=== PATIENT | male | born 1960 ===

== ENCOUNTER 2020-07-14 22:29 | Emergency (ER) | payer OTHER ==
[2020-07-14] MEDS ORDERED: ONDANSETRON 4 MG/2 ML VIAL ONE (23:16)
[2020-07-14] MEDS ORDERED: MORPHINE 4 MG/ML SYR ONE (23:16)
[2020-07-14 23:21] LABS: Absolute Lymphocytes (CBC) 1.8 K/uL (0.7-4.9); Basophils % 0.5 % (0-1.3); Hematocrit 44.8 % (39.6-49.0); Lymphocytes % 16.1 % (15.3-44.8); MPV 8.6 fL (7.6-11.3); RBC Red Blood Cell Count 5.01 M/uL (4.33-5.43)
[2020-07-14 23:26] LABS: Protime INR 1.04
[2020-07-14 23:45] LABS: ALT/SGPT 44 U/L (12-78); AST/SGOT 30 U/L (15-37); Albumin 4.3 g/dL (3.4-5.0); Alkaline Phosphatase 89 U/L (45-117); BUN Blood Urea Nitrogen 9 mg/dL (7-18); Bicarbonate 23 mmol/L (21-32); Bilirubin Direct 0.2 mg/dL (0-0.2); Bilirubin Total 0.5 mg/dL (0.2-1.0); Glucose Level 102 mg/dL (74-106); Lipase 234 U/L (73-393); Magnesium 2.1 mg/dL (1.8-2.4); NT PRO-BNP 100 pg/mL (<125); Potassium 3.6 mmol/L (3.5-5.1); Protein, Total 8.4 g/dL (6.4-8.2); Sodium Level 138 mmol/L (136-145); Troponin (Emerg Dept Use Only) < 0.02 ng/mL (0.0-0.045)
[2020-07-15] MEDS ORDERED: LABETALOL 20 MG/4ML SYRINGE IV ONE (01:35)
--- NOTE | 2020-07-15 01:39 | EDPHYS ---
Physician Documentation [facility] Name: João Hoffman Age: 59 yrs Sex: Male : 1960 Arrival Date: 07/14/2020 Time: 22:32 Bed 15 Private MD: TED Physician Pardeep Hoffman HPI: 07/14 22:55 This 59 yrs old Male presents to ER via Ambulatory with complaints of Abdominal Pain. cp 22:55 The patient presents with abdominal pain right upper lateral abdomen. The symptoms cp radiate to right back. Associated signs and symptoms: Pertinent positives: palpitations, Pertinent negatives: blood in stools, constipation, diarrhea, dysuria, fever, shortness of breath, testicular pain, vomiting. 22:55 Severity of pain: in the emergency department the pain is unchanged despite home cp interventions. 22:55 Patient reports recent release from alf and that he was given metoprolol instead of cp carvedilol for HTN and palpitations. Patient reports in the past metoprolol did not work to manage palpitations. Historical: - Allergies: 22:50 No Known Allergies; em - Home Meds: 22:50 carvedilol 25 mg oral tab [Active]; diazepam 5 mg Oral tab [Active]; em - PMHx: 22:50 Hypertension; Anxiety; em - PSHx: 22:50 neck; lower back; em - Immunization history:: Adult Immunizations not up to date. - Social history:: Smoking status: Patient reports the use of cigarette tobacco products, denies chronic smoking, but will smoke occasionally. ROS: 23:00 Constitutional: Negative for body aches, chills, fever, poor PO intake. cp 23:00 Eyes: Negative for injury, pain, redness, and discharge. cp 23:00 ENT: Negative for ear pain, sore throat, difficulty swallowing, difficulty handling secretions. 23:00 Cardiovascular: Positive for palpitations, Negative for chest pain, edema. 23:00 Respiratory: Negative for cough, shortness of breath, wheezing. 23:00 Abdomen/GI: Positive for abdominal pain, Negative for vomiting, diarrhea, constipation, anorexia, black/tarry stool, rectal bleeding. 23:00 Back: Negative for pain at rest, pain with movement. 23:00 : Negative for urinary symptoms, testicular pain 23:00 Skin: Negative for cellulitis, rash. 23:00 Neuro: Negative for altered mental status, headache, numbness, syncope, weakness. 23:00 All other systems are negative. Exam: 23:05 ECG was reviewed by the Attending Physician. cp 23:07 Constitutional: The patient appears in no acute distress, alert, awake, cp non-diaphoretic, non-toxic, well developed, well nourished. 23:07 Head/Face: Normocephalic, atraumatic. cp 23:07 Eyes: Periorbital structures: appear normal, Conjunctiva: normal, no exudate, no injection, Sclera: no appreciated abnormality, Lids and lashes: appear normal, bilaterally. 23:07 ENT: External ear(s): are unremarkable, Nose: is normal, Mouth: Lips: moist, Oral mucosa: pink and intact, moist, Posterior pharynx: Airway: no evidence of obstruction, patent. 23:07 Neck: ROM/movement: is normal, is supple, without pain, no range of motions limitations. 23:07 Chest/axilla: Inspection: normal, Palpation: is normal, no crepitus, no tenderness. 23:07 Cardiovascular: Rate: tachycardic, Rhythm: regular, Edema: is not appreciated, JVD: is not appreciated. 23:07 Respiratory: the patient does not display signs of respiratory distress, Respirations: normal, no use of accessory muscles, no retractions, labored breathing, is not present, intercostal retractions, are absent, Breath sounds: are clear throughout, no decreased breath sounds, no stridor, no wheezing. 23:07 Abdomen/GI: Inspection: abdomen appears normal, Bowel sounds: active, all quadrants, Palpation: soft, in all quadrants, moderate abdominal tenderness, in the anterior aspect of right upper lateral abdomen, rebound tenderness, is not appreciated, voluntary guarding, is not appreciated, involuntary guarding, is not appreciated. 23:07 Back: CVA tenderness, is absent. 23:07 Skin: no rash present. 23:07 Neuro: Orientation: to person, place \T\ time. Mentation: is normal, Motor: moves all fours, strength is normal. Vital Signs: 22:47 BP 154 / 102; Pulse 112; Resp 18; Temp 97.8; Pulse Ox 97% on R/A; Weight 90.72 kg; em Height 6 ft. 0 in. (182.88 cm); Pain 10/10; 23:00 Pulse 102; Resp 18; Temp 98.6; Pulse Ox 100% ; Pain 10/10; cr4 12 00:16 BP 138 / 100; Pulse 98; Resp 18; Temp 98.4; Pulse Ox 99% ; Pain 10/10; cr4 01:09 BP 158 / 105; Pulse 116; Resp 18; Pulse Ox 98% on R/A; mg2 01:39 BP 125 / 82; Pulse 70; Resp 18; Pulse Ox 100% on R/A; mg2 07/14 22:47 Body Mass Index 27.12 (90.72 kg, 182.88 cm) em MDM: 07/14 01:35 Counseling: I had a detailed discussion with the patient and/or guardian regarding: the cp historical points, exam findings, and any diagnostic results supporting the discharge/admit diagnosis, lab results, radiology results, the need for outpatient follow up, 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 01:35 Response to treatment: the patient's symptoms have markedly improved after treatment, cp and as a result, I will discharge patient. 22:45 Patient medically screened. cp 23:00 Differential diagnosis: acute coronary syndrome, appendicitis, bowel obstruction, cp cholecystitis, Cholelithiasis, gastritis, pancreatitis, Pyelonephritis, Ureterolithiasis, urinary tract infection. 07/15 01:07 Data reviewed: vital signs, nurses notes, lab test result(s), EKG, radiologic studies, cp CT scan, plain films, ultrasound. Test interpretation: by ED physician or midlevel provider: ECG, chest xray negative for infiltrates. ED course: VSS. Pain and palpitations improved. Patient denies having any chest pain and request discharge to home. 07/14 22:53 Order name: Basic Metabolic Panel cp 07/14 22:53 Order name: CBC with Diff cp 07/14 22:53 Order name: LFT's cp 07/14 22:53 Order name: Magnesium cp 07/14 22:53 Order name: NT PRO-BNP cp 07/14 22:53 Order name: PT-INR cp 07/14 22:53 Order name: Troponin (emerg Dept Use Only) cp 07/14 22:53 Order name: ETOH Level; Complete Time: 23:45 cp 02 22:53 Order name: TSH; Complete Time: 23:45 cp 02 22:53 Order name: Lipase; Complete Time: 23:45 cp 07/14 22:53 Order name: Basic Metabolic Panel; Complete Time: 23:45 EDMS 07/15 00:40 Interpretation: Normal except: GFR 89. cp 02 22:53 Order name: CBC with Automated Diff; Complete Time: 23:45 EDMS 07/15 00:40 Interpretation: Normal except: WBC 11.20; MARQUIS% 78.3; NEUT A 8.8. cp 02 22:53 Order name: Liver (Hepatic) Function; Complete Time: 23:45 EDMS 02 00:41 Interpretation: Normal except: TP 8.4; GLOB 4.1; A/G 1.0. cp 02 22:53 Order name: XRAY Chest (1 view) 02 22:53 Order name: EKG; Complete Time: 22:54 07/14 22:53 Order name: Cardiac monitoring; Complete Time: 00:07 07/14 22:53 Order name: EKG - Nurse/Tech; Complete Time: 23:16 cp 02 22:53 Order name: IV Saline Lock; Complete Time: 23:10 cp 02 22:53 Order name: US Abdomen Limited: RUQ 02 22:53 Order name: Magnesium; Complete Time: 23:45 EDMS 02 22:53 Order name: NT PRO-BNP; Complete Time: 23:45 EDMS 02 22:53 Order name: Protime (+INR); Complete Time: 23:45 EDMS 11 22:53 Order name: Troponin (Emerg Dept Use Only); Complete Time: 23:45 EDMS 0211 23:47 Order name: CT Abd/Pelvis - IV Contrast Only 07/15 00:22 Order name: SARS-COV-2 RT PCR; Complete Time: 00:40 EDMS 07/14 22:53 Order name: Labs collected and sent; Complete Time: 23:10 cp 07/14 22:53 Order name: O2 Per Protocol; Complete Time: 00:56 cp 07/14 22:53 Order name: O2 Sat Monitoring; Complete Time: 00:56 cp EC/11 23:05 Rate is 105 beats/min. Rhythm is regular. CT interval is normal. QRS interval is cp prolonged at 114 msec. QT interval is normal. T waves are Inverted in leads aVR, V2, V3. Interpreted by me. Reviewed by me. Administered Medications: 23:10 Drug: morphine 4 mg Route: IVP; Site: right antecubital; cr4 07/15 00:18 Follow up: Response: No adverse reaction; Pain is decreased cr4 07/14 23:10 Drug: Zofran (Ondansetron) 4 mg Route: IVP; Site: right antecubital; cr4 07/15 00:18 Follow up: Response: No adverse reaction cr4 01:24 Drug: Labetalol 10 mg Route: IVP; Site: right antecubital; mg2 01:47 Follow up: Response: No adverse reaction; Blood pressure is lowered mg2 Disposition: 14:39 Co-signature as Attending Physician, Pardeep Hoffman MD I agree with the assessment and samina plan of care. Disposition: 07/15/20 01:39 Discharged to Home. Impression: Palpitations, Unspecified abdominal pain. - Condition is Stable. - Discharge Instructions: Abdominal Pain, Adult, Palpitations. - Prescriptions for Bentyl 20 mg Oral Tablet - take 1 tablet by ORAL route every 6 hours As needed; 20 tablet. Zofran 4 mg Oral Tablet - take 1 tablet by ORAL route every 12 hours As needed; 20 tablet. - Medication Reconciliation Form, Thank You Letter, Antibiotic Education, Prescription Opioid Use form. - Follow up: Private Physician; When: 1 - 2 days; Reason: Recheck today's complaints. - Problem is new. - Symptoms have improved. Signatures: Dispatcher [employer] [facility] Pardeep Hoffman MD MD cha Munoz, Edgar, RN RN Alejandra Meraz RN RN cr4 Pardeep Turner PA PA cp Gardose, Michele, RN RN mg2 Corrections: (The following items were deleted from the chart) 07/14 23:42 22:54 CORONAVIRUS+BRZ ordered. [facility] 07/15 00:41 00:40 Normal except: WBC 11.20. cp cp 01:47 01:39 07/15/2020 01:39 Discharged to Home. Impression: Palpitations; Unspecified mg2 abdominal pain. Condition is Stable. Forms are Medication Reconciliation Form, Thank You Letter, Antibiotic Education, Prescription Opioid Use. Follow up: Private Physician; When: 1 - 2 days; Reason: Recheck today's complaints. Problem is new. Symptoms have improved. cp
--- NOTE | 2020-07-15 01:39 | ER ---
Nurse's Notes [facility] Name: João Hoffman Age: 59 yrs Sex: Male : 1960 Arrival Date: 07/14/2020 Time: 22:32 Bed 15 Private MD: Diagnosis: Palpitations;Unspecified abdominal pain Presentation: 07/14 22:47 Chief complaint: Patient states: right sided flank pain for several weeks, also reports em chest pain and palpitations, denies N/V/D or fever. Coronavirus screen: Client denies travel out of the [place] in the last 14 days. At this time, the client does not indicate any symptoms associated with coronavirus-19. Ebola Screen: Patient negative for fever greater than or equal to 101.5 degrees Fahrenheit, and additional compatible Ebola Virus Disease symptoms Patient denies exposure to infectious person. Patient denies travel to an Ebola-affected area in the 21 days before illness onset. No symptoms or risks identified at this time. Initial Sepsis Screen: Does the patient meet any 2 criteria? HR > 90 bpm. No. Patient's initial sepsis screen is negative. Does the patient have a suspected source of infection? No. Patient's initial sepsis screen is negative. Risk Assessment: Do you want to hurt yourself or someone else? Patient reports no desire to harm self or others. Onset of symptoms was July 14, 2020. 22:47 Method Of Arrival: Ambulatory em 22:47 Acuity: SANCHO 3 em Historical: - Allergies: 22:50 No Known Allergies; em - Home Meds: 22:50 carvedilol 25 mg oral tab [Active]; diazepam 5 mg Oral tab [Active]; em - PMHx: 22:50 Hypertension; Anxiety; em - PSHx: 22:50 neck; lower back; em - Immunization history:: Adult Immunizations not up to date. - Social history:: Smoking status: Patient reports the use of cigarette tobacco products, denies chronic smoking, but will smoke occasionally. Screenin/12 01:40 Abuse screen: Denies threats or abuse. Denies injuries from another. Nutritional mg2 screening: No deficits noted. Tuberculosis screening: No symptoms or risk factors identified. Fall Risk IV access (20 points). Assessment: 07/14 23:00 General: Appears uncomfortable, well groomed, Behavior is cooperative, anxious. Pain: cr4 Complains of pain in right abdomen Pain radiates to right lower back. Neuro: Reports dizziness, off and on for 2 months. numbness in right foot and left foot a syncopal episode Denies weakness blurred vision difficulty swallowing, headache. Cardiovascular: Reports palpitations, shortness of breath, Denies chest pain, vomiting, Heart tones S1 S2 Capillary refill < 3 seconds Patient's skin is warm and dry. Pulses are all present. Edema is absent. Rhythm is regular Chest pain is denied. Respiratory: Reports shortness of breath at rest on exertion history of COPD Airway is patent Trachea midline Respiratory effort is even, unlabored, Respiratory pattern is regular, Breath sounds are clear bilaterally. Breath sounds are diminished bilaterally. GI: Bowel sounds present X 4 quads. Abdomen is tender to palpation in right lower quadrant Reports tolerance of fluids, tolerance of food, Patient currently denies nausea, vomiting. : Denies. EENT: Poor dentition noted. Derm: No deficits noted. Musculoskeletal: No deficits noted. Vital Signs: 22:47 BP 154 / 102; Pulse 112; Resp 18; Temp 97.8; Pulse Ox 97% on R/A; Weight 90.72 kg; em Height 6 ft. 0 in. (182.88 cm); Pain 10/10; 23:00 Pulse 102; Resp 18; Temp 98.6; Pulse Ox 100% ; Pain 10/10; cr4 02/12 00:16 BP 138 / 100; Pulse 98; Resp 18; Temp 98.4; Pulse Ox 99% ; Pain 10/10; cr4 01:09 BP 158 / 105; Pulse 116; Resp 18; Pulse Ox 98% on R/A; mg2 01:39 BP 125 / 82; Pulse 70; Resp 18; Pulse Ox 100% on R/A; mg2 07/14 22:47 Body Mass Index 27.12 (90.72 kg, 182.88 cm) em ED Course: 07/14 22:32 Patient arrived in ED. ag3 22:38 Pardeep Turner PA is PHCP. cp 22:38 Pardeep Hoffman MD is Attending Physician. cp 22:49 Triage completed. em 22:50 Arm band placed on. em 22:53 Alejandra Corado, RN is Primary Nurse. cr4 23:05 Inserted saline lock: 20 gauge in right antecubital area, using aseptic technique. cr4 Blood collected. 23:19 US Abdomen Limited: RUQ In Process Unspecified. EDMS 23:48 XRAY Chest (1 view) In Process Unspecified. EDMS 02 00:32 CT Abd/Pelvis - IV Contrast Only In Process Unspecified. EDMS 01:40 Patient has correct armband on for positive identification. mg2 01:46 No provider procedures requiring assistance completed. IV discontinued, intact, mg2 bleeding controlled, No redness/swelling at site. Pressure dressing applied. Administered Medications: 07/14 23:10 Drug: morphine 4 mg Route: IVP; Site: right antecubital; cr4 07/15 00:18 Follow up: Response: No adverse reaction; Pain is decreased cr4 07/14 23:10 Drug: Zofran (Ondansetron) 4 mg Route: IVP; Site: right antecubital; cr4 07/15 00:18 Follow up: Response: No adverse reaction cr4 01:24 Drug: Labetalol 10 mg Route: IVP; Site: right antecubital; mg2 01:47 Follow up: Response: No adverse reaction; Blood pressure is lowered mg2 Outcome: 01:39 Discharge ordered by . cp 01:46 Discharged to home ambulatory. mg2 01:46 Condition: stable 01:46 Discharge instructions given to patient, Instructed on discharge instructions, follow up and referral plans. medication usage, Demonstrated understanding of instructions, follow-up care, medications, Prescriptions given X 2. 01:47 Patient left the ED. mg2 Signatures: Dispatcher [employer] José Miguel Shelton RN RN em Ruiz, Claudia RN RN cr4 Pardeep Turner PA PA cp Gardose, Michele RN RN mg2 Jessica Pettit ag3
[2020-07-15 01:55] VITALS: TEMP 98.4
[2020-07-15 01:57] VITALS: BP 125/82; O2SAT 100
--- NOTE | 2020-07-15 08:03 | RAD REPORT ---
EXAM DESCRIPTION: US - Abdomen Exam Limited - 07/14/2020 11:19 pm CLINICAL HISTORY: Abdominal pain. COMPARISON: None. FINDINGS: The gallbladder wall is not thickened. A gallstone is not seen. The biliary tree is normal caliber. IMPRESSION: Unremarkable gallbladder ultrasound.
--- NOTE | 2020-07-15 08:04 | RAD REPORT ---
EXAM DESCRIPTION: Rohith Single View07/14/2020 11:48 pm CLINICAL HISTORY: Palpitation/abdominal pain COMPARISON: none FINDINGS: The lungs appear clear of acute infiltrate. The heart is normal size. special events coordinator ove rlies the left chest. Old right clavicular fracture IMPRESSION: No acute abnormalities displayed
--- NOTE | 2020-07-15 08:15 | RAD REPORT ---
EXAM DESCRIPTION: CT - Abdomen Pelvis W Contrast - 07/15/2020 7:03 am CLINICAL HISTORY: ABD PAIN. COMPARISON: None. TECHNIQUE: CT of the abdomen and pelvis was performed following intravenous administration of iodina jack contrast. Arterial phase images to the abdomen, and portal venous phase images through the abdome n and pelvis were obtained. Oral contrast was not administered. Axial, coronal, and sagittal soft tis doni window reconstructions were created and sent to PACS. This exam was performed according to our departmental dose-optimization program, which includes autom ated exposure control, adjustment of the mA and/or kV according to patient size and/or use of iterati ve reconstruction technique. FINDINGS: Thoracic: No significant abnormality. Hepatobiliary: No concerning hepatic lesion identified. Few tiny hepatic hypodensities, likely cysts. The hepatic and portal veins are patent. The gallbladder is unremarkable. No biliary ductal dilatati on. Pancreas: Unremarkable. Spleen: Unremarkable. Gastrointestinal: No evidence of bowel obstruction or perienteric inflammation. The appendix is anatoliy l. Adrenals: No abnormality identified in either adrenal gland. Renal: Tiny inferior right renal hypodensity, too small to accurately characterize but statistically likely a cyst. No concerning parenchymal abnormality in either kidney. No hydronephrosis or urolithia sis. Bladder/Reproductive: Unremarkable appearance of the urinary bladder by CT technique. Moderate prosta tomegaly, measuring 4.8 x 6.2 x 5.2 cm, with mild indentation on the bladder base. Vascular/Lymphatics: No lymphadenopathy identified by CT size criteria. Abdominal aorta is normal in caliber. The major visceral vessels are patent. Moderate atherosclerosis. Musculoskeletal: No concerning osseous lesion identified. Spinal degenerative and postsurgical change s. Fluid / peritoneum: No significant free fluid. No free intraperitoneal air identified. IMPRESSION 1. No acute abnormality identified in the abdomen or pelvis by CT. 2. Moderate prostatomegaly. Electronically signed by: Emily Wren MD 07/15/2020 12:41 AM COMBAT CONTROL MANAGER Due to temporary technical issues with the PACS/Fluency reporting system, reports are being signed by the in house radiologist without review as a courtesy to ensure prompt reporting. The interpreting r adiologist is fully responsible for the content of the report.
--- NOTE | 2020-07-17 07:58 | EKG ---
Test Date: 2020-07-14 Test Time: 22:58:27 Spectral Scientist: PEDRO MEASUREMENT RESULTS: Intervals: Rate: 105 WI: 200 QRSD: 114 QT: 358 QTc: 473 [place]: P: 77 WI: 200 QRS: 59 T: 74 INTERPRETIVE STATEMENTS: Sinus tachycardia Right bundle branch block Abnormal ECG No previous ECG available for comparison Electronically Signed On 07-17-20 07:53:47 EDGER LINER by Ronnie Stark
== END 2020-07-15 01:47 | disposition home or self-care (01) ==
LOC: ER 22:29
DX: R00.2 Palpitations (principal); I10 Essential (primary) hypertension; F41.9 Anxiety disorder, unspecified; F17.210 Nicotine dependence, cigarettes, uncomplicated; Z20.822 Contact with and (suspected) exposure to COVID-19
CPT/HCPCS: 93005; 85025; 80048; 36415; 80320; 83735; 85610; 80076; 84443; 84484; 83690; 83880; 74177; 71045; 76705; 96375; 96374; 99284; U0003; Q9967; J2405